=== PATIENT | female | born 1945 | race Caucasian/White ===

== ENCOUNTER 2022-12-08 11:07 | Emergency (ER) | payer MEDICARE, BC ==
[2022-12-08] MEDS ORDERED: SODIUM CHLORIDE 0.9% 1,000 ML IV STA (11:33)
[2022-12-08] MEDS ORDERED: KETOROLAC 15 MG/ML 1 ML VIAL IVP STA (11:33)
[2022-12-08 11:36] VITALS: RESP 18; TEMP 98.1
--- NOTE | 2022-12-08 11:41 | ED ---
Fall HPI - General Chief Complaint: Fall Stated Complaint: Fall Time Seen by Provider: 12/08/22 11:19 Source: patient Mode of arrival: wheelchair - History of Present Illness Initial Comments: 77-year-old female with a past medical history of A. fib on Eliquis presents to the ED with a chief complaint of fall. Patient notes 2 falls. Patient notes one fall today and while in a fall yesterday. Per patient, is unable to recall the fall. Patient notes that she might have had a syncopal episode. Per family, noted that the patient fell from her bed onto the bedroom floor. [place] chatman admits that she did hit her head during these falls. Unsure if there was LOC. However, patient now notes headache, left shoulder pain, left hip pain. Per daughter at bedside, patient acting appropriately. Patient denies nausea or vomiting. No chest pain or shortness of breath preceding or falls. No other complaints. - Related Data Home Medications Medication Instructions Recorded Confirmed Acetaminophen Tab [Tylenol Tab] 500 mg PO Q6HR PRN 12/08/22 12/08/22 Apixaban [Eliquis] 5 mg PO BID 12/08/22 12/08/22 Bumetanide [Bumex] 1 mg PO DAILY 12/08/22 12/08/22 Calcium Citrate 250 mg PO DAILY PRN 12/08/22 12/08/22 Cetirizine HCl 10 mg PO HS 12/08/22 12/08/22 Cholecalciferol [Vitamin D3 (25 50 mcg PO BID 12/08/22 12/08/22 Mcg = 1000 Iu)] Digoxin [Lanoxin] 125 mcg PO DAILY 12/08/22 12/08/22 Famotidine 40 mg PO HS 12/08/22 12/08/22 Ferrous Sulfate [Feosol] 325 mg PO BID 12/08/22 12/08/22 Fluticasone Nasal [place] [Flonase 2 spray EA NOSTRIL BID 12/08/22 12/08/22 Nasal [place]] Fluticasone Propion/Salmeterol 1 puff INHALATION RT-BID 12/08/22 12/08/22 [Wixela 250-50 Inhub] L.acidoph,Paracasei, B.lactis 1 cap PO DAILY 12/08/22 12/08/22 [Probiotic] Mag Hydrox/Aluminum Hyd/Simeth 30 ml PO Q4H 12/08/22 12/08/22 [Mylanta Maximum Strength Liq] Magnesium Citrate 250 mg PO DAILY PRN 12/08/22 12/08/22 Melatonin 5 - 10 mg PO HS PRN 12/08/22 12/08/22 Metoprolol Succinate [Metoprolol 25 mg PO HS 12/08/22 12/08/22 Succinate ER] Minocycline HCl [Minocin] 100 mg PO DAILY PRN 12/08/22 12/08/22 Pantoprazole [Protonix] 40 mg PO BID 12/08/22 12/08/22 Potassium Chloride ER [K-Dur 10] 10 meq PO DAILY 12/08/22 12/08/22 Sacubitril/Valsartan [Entresto 97 1 tab PO BID 12/08/22 12/08/22 mg-103 mg Tablet] Simethicone [Gas-X] 125 mg PO ACHS PRN 12/08/22 12/08/22 Simvastatin [Zocor] 20 mg PO HS 12/08/22 12/08/22 Super B Complex 1 tab PO DAILY 12/08/22 12/08/22 Tiotropium 2.5 Mcg/Puff [Spiriva 1 puff INHALATION RT-DAILY 12/08/22 12/08/22 Respimat 2.5 Mcg] Allergies Allergy/AdvReac Type Severity Reaction Status Date / Time morphine Allergy Unknown Verified 12/08/22 13:29 Review of Systems ROS Statement: Those systems with pertinent positive or pertinent negative responses have been documented in the HPI. ROS Other: All systems not noted in ROS Statement are negative. Past Medical History Past Medical History: Atrial Fibrillation, Asthma, Diabetes Mellitus, Hypertension History of Any Multi-Drug Resistant Organisms: None Reported Past Surgical History: Adenoidectomy, Section, Orthopedic Surgery, Tonsillectomy Past Psychological History: No Psychological Hx Reported Smoking Status: Former smoker Past Alcohol Use History: Rare Past Drug Use History: None Reported General Exam Limitations: physical limitation General appearance: alert, in no apparent distress Neck exam: Present: normal inspection Respiratory exam: Present: normal lung sounds bilaterally Cardiovascular Exam: Present: regular rate, normal rhythm GI/Abdominal exam: Present: soft Extremities exam: Present: other (Transient sensation equal and intact in bilateral upper and lower extremities. Left shoulder has full active range of motion. Pelvis stable to rocking. No pain on log roll of the left lower extre mity. No crepitus, step-off, or obvious deformity. No shortening or rotation.) Neurological exam: Present: alert, oriented X3 Skin exam: Present: warm, dry Course Vital Signs 12/08/22 12/08/22 11:10 16:12 Temperature 98.1 F Pulse Rate 70 45 L Respiratory 18 18 Rate Blood Pressure 146/75 137/79 O2 Sat by Pulse 96 91 L Oximetry Medical Decision Making - Medical Decision Making Was pt. sent in by a medical professional or institution (, PA, VACCINE CUSTOMER REPRESENTATIVE, urgent care, hospital, or penitentiary...) When possible be specific @ -No Did you speak to anyone other than the patient for history (EMS, parent, family, police, friend...)? What history was obtained from this source @ -Spoke to the patient's daughter who noted patient fell from bed to floor during both these events. Also notes that the patient really receives care at [facility] and the [facility]. Reports that she follows with cardiology on a regular basis with an echo performed last month reportedly EF of 35%. Did you review nursing and triage notes (agree or disagree)? Why? @ -I reviewed and agree with nursing and triage notes Were old charts reviewed (outside hosp., previous admission, EMS record, old EKG, old radiological studies, urgent care reports/EKG's, penitentiary records)? Report findings @ -No old charts were reviewed Differential Diagnosis (chest pain, altered mental status, abdominal pain women, abdominal pain men, vaginal bleeding, weakness, fever, dyspnea, syncope, headache, dizziness, GI bleed, back pain, seizure, CVA, palpatations, mental health, musculoskeletal)? @ -Differential Syncope: Valvular disease, hypertrophic cardiomyopathy, pulmonary embolism, tamponade, tachycardia, bradycardia, PR, hypovolemia, hemorrhage, dissection, anemia, intracranial hemorrhage, seizure, hypoglycemia, carbon monoxide poisoning, this is not meant to be an all-inclusive list. EKG interpreted by me (3pts min.). @ -As above X-rays interpreted by me (1pt min.). @ -X-Rays of the chest, pelvis, hip interpreted by me showing no evidence of acute finding. CT interpreted by me (1pt min.). @ -CT brain C-spine interpreted by me show no evidence of bleed, fracture or other acute process. U/S interpreted by me (1pt. min.). @ -None done What testing was considered but not performed or refused? (CT, X-rays, U/S, labs)? Why? @ -None What meds were considered but not given or refused? Why? @ -None Did you discuss the management of the patient with other professionals (professionals i.e. DrDominique, PA, VACCINE CUSTOMER REPRESENTATIVE, lab, RT, psych nurse, social media analyst, unishear operator, teacher, electronic intelligence officer, watch case polisher)? Give summary @ -No Was smoking cessation discussed for >3mins.? @ -No Was critical care preformed (if so, how long)? @ -No Were there social determinants of health that impacted care today? How? (Homelessness, low income, unemployed, alcoholism, drug addiction, transportation, low edu. Level, literacy, decrease access to med. care, long-term, rehab)? @ -No Was there de-escalation of care discussed even if they declined (Discuss DNR or withdrawal of care, Hospice)? DNR status @ -No What co-morbidities impacted this encounter? (DM, HTN, Smoking, COPD, CAD, Cancer, CVA, ARF, Chemo, Hep., AIDS, mental health diagnosis, sleep apnea, morbid obesity)? @ -A. fib Was patient admitted / discharged? Hospital course, mention meds given and route, prescriptions, significant lab abnormalities, going to OR and other pertinent info. @ -Discharge 77-year-old female with a history of A. fib on Plavix presenting after 2 syncopal episodes, one occurring last night and one occurring today. Patient reports that she did hit her head during these. CT scans obtained which showed no acute findings of the brain or C-spine. Plain films of the chest, shoulder, pelvis unremarkable. Basic laboratory studies including CBC, CMP, troponin, coagulation studies within normal limits. Patient was offered observation with consult to cardiology due to syncopal episode however family notes that she rec eives all her care at [facility] and reports that they would not like to have her admitted here. Family reports that if they feel patient needs further workup will follow-up with her PCP or bring the patient to [facility]. Discussed return precautions with patient and family who verbalizes agreement. Undiagnosed new problem with uncertain prognosis? @ -No Drug Therapy requiring intensive monitoring for toxicity (Heparin, Nitro, Insul in, Cardizem)? @ -No Were any procedures done? @ -No Diagnosis/symptom? @ -Syncope Acute, or Chronic, or Acute on Chronic? @ -Acute Uncomplicated (without systemic symptoms) or Complicated (systemic symptoms)? @ -Uncomplicated Side effects of treatment? @ -No Exacerbation, Progression, or Severe Exacerbation? @ -No Poses a threat to life or bodily function? How? (Chest pain, USA, PR, pneumonia, PE, COPD, DKA, ARF, appy, cholecystitis, CVA, Diverticulitis, Homicidal, Suicidal, threat to staff... and all critical care pts) @ -No - Lab Data Result diagrams: 12/08/22 13:03 12/08/22 13:03 Lab Results 12/08/22 12/08/22 12/08/22 Range/Units 13:03 13:03 13:03 WBC 7.2 (3.8-10.6) k/uL RBC 4.41 (3.80-5.40) m/uL Hgb 14.5 (11.4-16.0) gm/dL Hct 43.6 (34.0-46.0) % MCV 98.9 (80.0-100.0) fL MCH 32.9 (25.0-35.0) pg MCHC 33.2 (31.0-37.0) g/dL RDW 13.8 (11.5-15.5) % Plt Count 192 (150-450) k/uL MPV 8.7 Neutrophils % 74 % Lymphocytes % 16 % Monocytes % 6 % Eosinophils % 3 % Basophils % 0 % Neutrophils # 5.3 (1.3-7.7) k/uL Lymphocytes # 1.2 (1.0-4.8) k/uL Monocytes # 0.4 (0-1.0) k/uL Eosinophils # 0.2 (0-0.7) k/uL Basophils # 0.0 (0-0.2) k/uL PT 13.3 H (10.0-12.5) sec INR 1.3 H (<1.2) APTT 26.1 (22.0-30.0) sec Sodium 140 (137-145) mmol/L Potassium 3.9 (3.5-5.1) mmol/L Chloride 102 (98-107) mmol/L Carbon Dioxide 25 (22-30) mmol/L Anion Gap 13 mmol/L BUN 25 H (7-17) mg/dL Creatinine 0.83 (0.52-1.04) mg/dL Est GFR (CKD-EPI)AfAm 79 (>60 ml/min/1.73 sqM) Est GFR (CKD-EPI)NonAf 69 (>60 ml/min/1.73 sqM) Glucose 121 H (74-99) mg/dL Plasma Lactic Acid Dewayne (0.7-2.0) mmol/L Calcium 9.4 (8.4-10.2) mg/dL Total Bilirubin 1.6 H (0.2-1.3) mg/dL AST 43 H (14-36) U/L ALT 27 (4-34) U/L Alkaline Phosphatase 100 (38-126) U/L Troponin I (0.000-0.034) ng/mL Total Protein 7.5 (6.3-8.2) g/dL Albumin 4.3 (3.5-5.0) g/dL 12/08/22 12/08/22 Range/Units 13:03 13:03 WBC (3.8-10.6) k/uL RBC (3.80-5.40) m/uL Hgb (11.4-16.0) gm/dL Hct (34.0-46.0) % MCV (80.0-100.0) fL MCH (25.0-35.0) pg MCHC (31.0-37.0) g/dL RDW (11.5-15.5) % Plt Count (150-450) k/uL MPV Neutrophils % % Lymphocytes % % Monocytes % % Eosinophils % % Basophils % % Neutrophils # (1.3-7.7) k/uL Lymphocytes # (1.0-4.8) k/uL Monocytes # (0-1.0) k/uL Eosinophils # (0-0.7) k/uL Basophils # (0-0.2) k/uL PT (10.0-12.5) sec INR (<1.2) APTT (22.0-30.0) sec Sodium (137-145) mmol/L Potassium (3.5-5.1) mmol/L Chloride (98-107) mmol/L Carbon Dioxide (22-30) mmol/L Anion Gap mmol/L BUN (7-17) mg/dL Creatinine (0.52-1.04) mg/dL Est GFR (CKD-EPI)AfAm (>60 ml/min/1.73 sqM) Est GFR (CKD-EPI)NonAf (>60 ml/min/1.73 sqM) Glucose (74-99) mg/dL Plasma Lactic Acid Dewayne 1.2 (0.7-2.0) mmol/L Calcium (8.4-10.2) mg/dL Total Bilirubin (0.2-1.3) mg/dL AST (14-36) U/L ALT (4-34) U/L Alkaline Phosphatase (38-126) U/L Troponin I 0.017 (0.000-0.034) ng/mL Total Protein (6.3-8.2) g/dL Albumin (3.5-5.0) g/dL Disposition Clinical Impression: Syncope Disposition: HOME SELF-CARE Condition: Good Instructions (If sedation given, give patient instructions): Fall Prevention for Older Adults (ED) Additional Instructions: Please return to the Emergency Department if symptoms worsen or any other co ncerns. Please follow up with your PCP. Is patient prescribed a controlled substance at d/c from ED?: No Referrals: Adela Viera MD [Primary Care Provider] - 1-2 days Time of Disposition: 16:20
--- NOTE | 2022-12-08 12:50 | CT ---
EXAMINATION TYPE: CT brain cspine wo con CT DLP: 1548.9 mGycm, Automated exposure control for dose reduction was used. DATE OF EXAM: 12/08/2022 12:16 PM COMPARISON: None. CLINICAL INDICATION:Female, 77 years old with history of s/p fall, head injury on eliquis; TECHNIQUE: Brain: Multiple axial CT images of the brain were obtained without IV contrast. Cspine: Axial CT images from the skull base to the inferior aspect of T2 we obtained without intraven ous contrast. Coronal and sagittal reformatted images were also reviewed. FINDINGS: Brain: Extra-axial spaces: No abnormal extra-axial fluid collections. Ventricular system: Dilatation in proportion to cerebral atrophy. Cerebral parenchyma: Cerebral atrophy. No acute intraparenchymal hemorrhage or mass effect. The gomez -white junction is well differentiated. Scattered hypoattenuating areas are seen within the white mat ter. Cerebellum: Unremarkable. Mass effect: No evidence of midline shift. Intracranial vasculature: Atherosclerotic calcifications of the intracranial vessels. Soft tissues: Normal. Calvarium/osseous structures: No depressed skull fracture. Paranasal sinuses and mastoid air cells: Clear. Visualized orbits: Orbital contents are intact. Cervical spine: Fracture: None. Osseous structures: Multilevel degenerative disc disease changes with endplate spurring and disc oste ophyte complex's. Vertebral alignment: Within normal limits. Spinal canal/Neural Foramina: Disc osteophyte complexes at C5-C7 with at least mild spinal canal sten osis. Facet joint uncovertebral joint arthropathy scattered throughout the cervical spine with varyin g degrees of neural foraminal stenosis. Neck soft tissues: Prevertebral soft tissues are within normal limits. Atherosclerosis of the carotid bifurcations. Paraseptal and centrilobular emphysema changes in the lung apices. IMPRESSION: 1. No acute intracranial process. 2. Nonspecific white matter changes, likely secondary to chronic small vessel ischemic disease. 3. No evidence of cervical spine fracture. 4. Severe atherosclerosis of the carotid systems. 5. Moderate multilevel degenerative disc disease.
[2022-12-08 13:34] LABS: Basophils % (A) 0 %; Eosinophils # (A) 0.2 k/uL (0-0.7); Eosinophils % (A) 3 %; HCT 43.6 % (34.0-46.0); HGB 14.5 gm/dL (11.4-16.0); Lymphocytes # (A) 1.2 k/uL (1.0-4.8); Lymphocytes % (A) 16 %; MCH 32.9 pg (25.0-35.0); MCHC 33.2 g/dL (31.0-37.0); MCV 98.9 fL (80.0-100.0); Mean Platelet Volume 8.7; Monocytes # (A) 0.4 k/uL (0-1.0); Monocytes % (A) 6 %; Neutrophils # (A) 5.3 k/uL (1.3-7.7); Neutrophils % (A) 74 %; Platelet Count 192 k/uL (150-450); RBC 4.41 m/uL (3.80-5.40); RDW 13.8 % (11.5-15.5); WBC 7.2 k/uL (3.8-10.6)
[2022-12-08 13:49] LABS: ALT 27 U/L (4-34); African American GFR (CKD) 79 (>60 ml/min/1.73 sqM); Albumin 4.3 g/dL (3.5-5.0); Anion Gap 13 mmol/L; Blood Urea Nitrogen 25 mg/dL (7-17); Calcium 9.4 mg/dL (8.4-10.2); Carbon Dioxide 25 mmol/L (22-30); Chloride 102 mmol/L (98-107); Glucose 121 mg/dL (74-99); Non-African American GFR(CKD) 69 (>60 ml/min/1.73 sqM); Sodium 140 mmol/L (137-145); Total Bilirubin 1.6 mg/dL (0.2-1.3); Total Protein 7.5 g/dL (6.3-8.2)
[2022-12-08 13:56] LABS: AST 43 U/L (14-36); Alkaline Phosphatase 100 U/L (38-126); Potassium 3.9 mmol/L (3.5-5.1)
--- NOTE | 2022-12-08 15:19 | XR ---
EXAMINATION TYPE: XR pelvis AP view DATE OF EXAM: 12/08/2022 3:13 PM INDICATION: Patient age:Female; 77 years old; Reason for study: s/p fall, pain; PHH. COMPARISON: None TECHNIQUE: The pelvis was examined in a single projection. FINDINGS: There is no evidence of fracture or dislocation. Mild osteoarthritic changes of the left hi p with moderate osteoarthritic change of the right hip with medial superior joint space narrowing wit h subchondral cystic formation and marginal spurring. There is no soft tissue abnormality. No abnorm al calcifications are present. Multilevel degenerative changes of the lower spine with fusion hardwar e identified which extends into the bilateral SI joints. Vascular sclerosis. IMPRESSION: 1. No acute osseous pathology. 2. 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 3. Postsurgical changes of the lumbar spine and bilateral SI joints.
--- NOTE | 2022-12-08 15:22 | XR ---
EXAMINATION TYPE: XR chest 2V DATE OF EXAM: 12/08/2022 3:13 PM COMPARISON: None TECHNIQUE: XR chest 2V Frontal and lateral views of the chest. CLINICAL INDICATION:Female, 77 years old with history of s/p fall; FINDINGS: Lungs/Pleura: There is no evidence of pleural effusion, focal consolidation, or pneumothorax. Senesc ent parenchymal change. Pulmonary vascularity: Unremarkable. Heart/mediastinum: Cardiomediastinal silhouette is enlarged and stable. Atherosclerotic calcificatio ns are seen in the aorta. Musculoskeletal: No acute osseous pathology. Posterior thoracolumbar fusion hardware demonstrated wit h vertebral augmentation changes of the lower thoracic spine. Degenerative changes of the thoracic dom mbar spine. Bilateral shoulder calcified loose joint bodies. IMPRESSION: 1. No acute cardiopulmonary disease/process. 2. Cardiomegaly.
--- NOTE | 2022-12-08 15:25 | XR ---
EXAMINATION TYPE: XR shoulder complete LT DATE OF EXAM: 12/08/2022 3:13 PM INDICATION: Patient age:Female; 77 years old; Reason for study: s/p fall, pain; COMPARISON: None TECHNIQUE: The left shoulder was examined in AP, internally rotated and scapular Y projections. . FINDINGS: No evidence of acute osseous pathology, joint dislocation, or soft tissue swelling. Calcified loose b odies identified within the left shoulder joint space. Largest measures up to 2.2 cm. Osteoarthritic changes of the left shoulder with joint space narrowing and spurring. Atherosclerotic calcification o f the aorta. The remaining portions of the visualized chest are unremarkable. IMPRESSION: 1. No acute osseous pathology. 2. Calcified loose bodies within the left shoulder joint space. 3. 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
[2022-12-08 16:11] LABS: INR 1.3 (<1.2); Partial Thromboplastin Time 26.1 sec (22.0-30.0); Prothrombin Time 13.3 sec (10.0-12.5)
[2022-12-08 16:20] VITALS: BP 137/79; PULSE 45
== END 2022-12-08 17:01 | disposition home or self-care (01) ==
LOC: EC 11:07
DX: R55 Syncope and collapse (principal); I48.91 Unspecified atrial fibrillation; E11.9 Type 2 diabetes mellitus without complications; I10 Essential (primary) hypertension; J45.909 Unspecified asthma, uncomplicated; Z87.891 Personal history of nicotine dependence; Z88.5 Allergy status to narcotic agent; Z79.01 Long term (current) use of anticoagulants; Z79.51 Long term (current) use of inhaled steroids; Z79.899 Other long term (current) drug therapy; W06.XXXA Fall from bed, initial encounter
CPT/HCPCS: 80053; 83605; 84484; 85025; 85610; 85730; 72170; 73030; 71046; 72125; 70450; 99284; 96374; 96361 ×3; J1885; 36415